=== PATIENT | female | born 1945 | race Caucasian/White ===

== ENCOUNTER 2019-10-20 19:56 | Inpatient (IN) ==
[2019-10-20 20:40] LABS: Basophils % 0.5 %; Eosinophils % 1.7 %; Immature Granulocytes % 0.7 % (0-4)
[2019-10-20 20:41] LABS: Eosinophils # 0.1 K/mcL (0.0-0.6); Hemoglobin 11.9 g/dL (11.5-15.4); Immature Platelets 3.2 % (1.1-6.1); Lymphocytes # 0.7 K/mcL (0.6-4.6); Lymphocytes % 17.1 %; Mean Corpuscular Hemoglobin 29.2 pg (28.0-33.3); Mean Corpuscular Volume 85.8 fL (83.0-100.0); Mean Platelet Volume 10.4 fL (9.4-12.4); Monocytes # 0.4 K/mcL (0.0-1.3); Monocytes % 9.6 %; Red Blood Count 4.08 M/mcL (3.82-4.97); Red Cell Distribution Width 14.8 % (11.5-14.5); Segmented Neutrophils % 70.4 %; White Blood Count 4.2 K/mcL (4.3-11.1)
[2019-10-20 20:46] LABS: Platelet Count 60 K/mcL (140-400)
[2019-10-20 21:02] LABS: Alanine Aminotransferase 26 Units/L (7-52); Albumin/Globulin Ratio 1.2 (1.1-2.2); Alkaline Phosphatase 135 Units/L (34-104); Aspartate Amino Transferase 35 Units/L (13-39); BUN/Creatinine Ratio 19 (6-26); Bilirubin,Total 2.3 mg/dL (0.3-1.0); Blood Urea Nitrogen 22 mg/dL (8-23); Carbon Dioxide 23 mEq/L (23-29); Chloride 106 mEq/L (98-107); Globulin 2.6 g/dL (2.4-3.5); Glucose 182 mg/dL (70-105); Osmolality,Calculated 300 (280-300); Sodium 141 mEq/L (136-145); Total Protein 5.6 g/dL (6.4-8.9); Troponin I < 0.03 ng/mL (< 0.04); eGFR For African Americans 56 (> 60); eGFR For Non-African Americans 46 (> 60)
[2019-10-20 22:14] LABS: Bacteria,Urine None Seen per hpf (None-Few); Hyaline Casts,Urine None Seen per lpf (None-Few); RBC,Urine 0-3 per hpf (0-3); Squamous Epithelial Cell,Urine Many per lpf (None-Few)
[2019-10-20 22:15] LABS: Bilirubin,Urine Negative (Negative); Blood,Urine Negative (Negative); Clarity,Urine Clear (Clear); Color,Urine Yellow (Yellow); Glucose,Urine (UA) Normal (Normal); Ketones,Urine Negative (Negative); Leukocyte Esterase,Urine Trace (Negative); Nitrite,Urine Negative (Negative); Protein,Urine Negative (Neg-Trace); Specific Gravity,Urine 1.015 (1.010-1.025); Urobilinogen,Urine Normal (Normal)
[2019-10-20 22:27] LABS: INR 1.4; Prothrombin Time 15.4 Seconds (9.4-12.1)
[2019-10-20] MEDS ORDERED: Lactulose Oral Soln 20 GM/30 ML UDC PO ONE (23:06)
[2019-10-21] MEDS ORDERED: Naloxone 0.4 MG/ML INJ IVP PRN (02:04)
[2019-10-21] MEDS ORDERED: Lactulose Oral Soln 20 GM/30 ML UDC PO SCH (02:15)
[2019-10-21] MEDS ORDERED: 0.9 % Sodium Chloride 1,000 ML IVC SCH (02:15)
[2019-10-21] MEDS ORDERED: cefTRIAXone 1,000 MG in 0.9 % Sodium Chloride Mini Bag 100 ML IVPB SCH (05:00)
[2019-10-21 06:00] LABS: Hemoglobin 10.7 g/dL (11.5-15.4); Red Cell Distribution Width 14.6 % (11.5-14.5)
[2019-10-21 06:02] LABS: Hematocrit 31.4 % (35.3-44.9); Immature Platelets 3.1 % (1.1-6.1); Mean Corpuscular HGB Conc 34.1 g/dL (31.6-35.5); Mean Corpuscular Hemoglobin 29.1 pg (28.0-33.3); Mean Corpuscular Volume 85.3 fL (83.0-100.0); Mean Platelet Volume 9.8 fL (9.4-12.4); Red Blood Count 3.68 M/mcL (3.82-4.97); White Blood Count 2.5 K/mcL (4.3-11.1)
[2019-10-21 06:23] LABS: Alanine Aminotransferase 23 Units/L (7-52); Albumin 2.7 g/dL (3.5-5.7); Albumin/Globulin Ratio 1.2 (1.1-2.2); Alkaline Phosphatase 124 Units/L (34-104); Aspartate Amino Transferase 30 Units/L (13-39); BUN/Creatinine Ratio 23 (6-26); Blood Urea Nitrogen 23 mg/dL (8-23); Carbon Dioxide 21 mEq/L (23-29); Chloride 108 mEq/L (98-107); Globulin 2.3 g/dL (2.4-3.5); Glucose 185 mg/dL (70-105); Osmolality,Calculated 300 (280-300); Sodium 141 mEq/L (136-145); eGFR For African Americans > 60 (> 60); eGFR For Non-African Americans 54 (> 60)
[2019-10-21] MEDS ORDERED: Furosemide 40 MG TABLET PO SCH (09:00)
[2019-10-21] MEDS: Spironolactone 25 MG TABLET PO SCH (09:21)
[2019-10-21] MEDS: Lactulose Oral Soln 20 GM/30 ML UDC PO PRN (09:21)
[2019-10-21] MEDS: carvediloL 6.25 MG TABLET PO SCH ×2 (09:21→17:06)
[2019-10-21] MEDS ORDERED: *HR* Dextrose 50 % in Water (Syg) 50 ML SYRINGE IVP PRN (09:55)
[2019-10-21] MEDS ORDERED: D5% in Water 1,000 ML IVC PRN (09:55)
[2019-10-21] MEDS ORDERED: Dextrose Gel 15 GM/37.5 ML TUBE PO PRN ×2 (09:55)
[2019-10-21] MEDS: Insulin LISPRO 300 UNITS/3 ML VIAL SQ SCH ×2 (13:46→17:06)
[2019-10-22 00:49] LABS: Basophils % 0.8 %; Hemoglobin 9.9 g/dL (11.5-15.4); Immature Granulocytes % 0.4 % (0-4); Red Cell Distribution Width 14.7 % (11.5-14.5)
[2019-10-22 00:50] LABS: Hematocrit 30.3 % (35.3-44.9); Immature Platelets 2.8 % (1.1-6.1); Mean Corpuscular HGB Conc 32.7 g/dL (31.6-35.5); Mean Corpuscular Hemoglobin 29.1 pg (28.0-33.3); Mean Corpuscular Volume 89.1 fL (83.0-100.0); Mean Platelet Volume 11.3 fL (9.4-12.4); Segmented Neutrophils % 61.8 %; White Blood Count 2.5 K/mcL (4.3-11.1)
[2019-10-22 00:51] LABS: Eosinophils # 0.1 K/mcL (0.0-0.6); Lymphocytes # 0.6 K/mcL (0.6-4.6); Lymphocytes % 24.4 %; Monocytes # 0.3 K/mcL (0.0-1.3); Monocytes % 10.6 %; Neutrophils # 1.6 K/mcL (1.6-8.9)
[2019-10-22 00:53] LABS: Platelet Count 42 K/mcL (140-400)
[2019-10-22 00:54] LABS: Platelet Estimate Marked Decrease (Normal)
[2019-10-22 01:11] LABS: Alanine Aminotransferase 22 Units/L (7-52); Albumin 2.5 g/dL (3.5-5.7); Alkaline Phosphatase 115 Units/L (34-104); Aspartate Amino Transferase 28 Units/L (13-39); BUN/Creatinine Ratio 22 (6-26); Bilirubin,Direct 0.4 mg/dL (0.0-0.2); Bilirubin,Indirect 0.9 mg/dL (0.0-1.0); Bilirubin,Total 1.3 mg/dL (0.3-1.0); Blood Urea Nitrogen 22 mg/dL (8-23); Calcium 7.9 mg/dL (8.6-10.3); Carbon Dioxide 22 mEq/L (23-29); Chloride 110 mEq/L (98-107); Globulin 2.4 g/dL (2.4-3.5); Glucose 197 mg/dL (70-105); Osmolality,Calculated 295 (280-300); Potassium 3.8 mEq/L (3.5-5.1); Sodium 138 mEq/L (136-145); Total Protein 4.9 g/dL (6.4-8.9); eGFR For African Americans > 60 (> 60); eGFR For Non-African Americans 56 (> 60)
[2019-10-22] MEDS ORDERED: Ringers Solution, Lactated 1,000 ML IVC SCH (08:45)
[2019-10-22] MEDS ORDERED: cefTRIAXone 1,000 MG in Water for inj. (sterile) 10 ML IVP SCH (09:00)
[2019-10-22] MEDS ORDERED: cefTRIAXone 1,000 MG in 0.9 % Sodium Chloride Mini Bag 100 ML IVPB SCH (09:00)
[2019-10-22] MEDS: Insulin LISPRO 300 UNITS/3 ML VIAL SQ SCH ×3 (09:04→17:32)
[2019-10-22] MEDS: carvediloL 6.25 MG TABLET PO SCH ×2 (09:05→17:32)
[2019-10-22] MEDS: Spironolactone 25 MG TABLET PO SCH (09:05)
[2019-10-22] MEDS: Lactulose Oral Soln 20 GM/30 ML UDC PO PRN (09:36)
[2019-10-22 11:31] LABS: Hematocrit 33.8 % (35.3-44.9); Hemoglobin 11.3 g/dL (11.5-15.4)
[2019-10-22 12:15] LABS: Vitamin B12 601 pg/mL (250-1100); Vitamin D 25 Hydroxy 64 ng/mL (30-80)
[2019-10-22] MEDS ORDERED: Insulin LISPRO 300 UNITS/3 ML VIAL SQ SCH (21:48)
[2019-10-23 05:15] LABS: Alanine Aminotransferase 24 Units/L (7-52); Albumin 2.5 g/dL (3.5-5.7); Alkaline Phosphatase 117 Units/L (34-104); Aspartate Amino Transferase 31 Units/L (13-39); BUN/Creatinine Ratio 25 (6-26); Bilirubin,Total 1.2 mg/dL (0.3-1.0); Blood Urea Nitrogen 22 mg/dL (8-23); Calcium 7.8 mg/dL (8.6-10.3); Carbon Dioxide 22 mEq/L (23-29); Chloride 113 mEq/L (98-107); Globulin 2.5 g/dL (2.4-3.5); Glucose 139 mg/dL (70-105); Osmolality,Calculated 294 (280-300); Sodium 139 mEq/L (136-145); eGFR For African Americans > 60 (> 60); eGFR For Non-African Americans > 60 (> 60)
[2019-10-23] MEDS: Insulin LISPRO 300 UNITS/3 ML VIAL SQ SCH ×2 (07:36→12:51)
[2019-10-23] MEDS: Spironolactone 25 MG TABLET PO SCH (07:41)
[2019-10-23] MEDS: carvediloL 6.25 MG TABLET PO SCH (07:41)
[2019-10-23 09:45] LABS: Mean Corpuscular Volume 87.2 fL (83.0-100.0); Red Cell Distribution Width 14.6 % (11.5-14.5)
[2019-10-23 09:46] LABS: Basophils % 0.9 %; Eosinophils % 1.7 %; Hematocrit 31.9 % (35.3-44.9); Hemoglobin 10.6 g/dL (11.5-15.4); Immature Granulocytes % 0.9 % (0-4); Immature Platelets 3.4 % (1.1-6.1); Lymphocytes # 0.5 K/mcL (0.6-4.6); Lymphocytes % 20.9 %; Mean Corpuscular HGB Conc 33.2 g/dL (31.6-35.5); Mean Platelet Volume 10.7 fL (9.4-12.4); Monocytes # 0.2 K/mcL (0.0-1.3); Monocytes % 10.4 %; Neutrophils # 1.5 K/mcL (1.6-8.9); Red Blood Count 3.66 M/mcL (3.82-4.97); Segmented Neutrophils % 65.2 %; White Blood Count 2.3 K/mcL (4.3-11.1)
[2019-10-23 09:48] LABS: Platelet Count 36 K/mcL (140-400)
[2019-10-23] MEDS: Lactulose Oral Soln 20 GM/30 ML UDC PO PRN (10:29)
[2019-10-23 16:52] VITALS: BP 124/71
== END 2019-10-23 17:24 | disposition home health service (06) | DRG 442 ==
LOC: EMEROOARM 19:56 → 3NENU 19:56 → SUATTDRO 10-21 00:02 → 3NENU 10-21 00:56
PROVIDERS: ADMIT Internal Medicine; ATTEND Student in an Organized Health Care Education/Training Program

== ENCOUNTER 2020-03-13 15:45 | Inpatient (IN) ==
[2020-03-13] MEDS ORDERED: Ondansetron 4 MG/2 ML VIAL IVP STA (16:10)
[2020-03-13] MEDS ORDERED: Isovue-370 500 ML BOTTLE IVP ONE (16:10)
[2020-03-13] MEDS ORDERED: *HR* FentaNYL (PF) 100 MCG/2 ML VIAL IVP ONE (16:23)
[2020-03-13] MEDS ORDERED: 0.9 % Sodium Chloride 500 ML IVC STA (16:23)
[2020-03-13 16:41] LABS: Basophils % 0.5 %; Hematocrit 34.9 % (35.3-44.9)
[2020-03-13 16:43] LABS: Hemoglobin 11.2 g/dL (11.5-15.4); Immature Granulocytes % 0.8 % (0-4); Immature Platelets 2.2 % (1.1-6.1); Lymphocytes # 0.5 K/mcL (0.6-4.6); Mean Corpuscular HGB Conc 32.1 g/dL (31.6-35.5); Mean Corpuscular Hemoglobin 28.9 pg (28.0-33.3); Mean Corpuscular Volume 89.9 fL (83.0-100.0); Mean Platelet Volume 9.9 fL (9.4-12.4); Monocytes # 0.3 K/mcL (0.0-1.3); Monocytes % 8.5 %; Neutrophils # 3.1 K/mcL (1.6-8.9); Platelet Count 52 K/mcL (140-400); Red Blood Count 3.88 M/mcL (3.82-4.97); Red Cell Distribution Width 16.6 % (11.5-14.5); Segmented Neutrophils % 77.2 %
[2020-03-13 16:44] LABS: INR 1.5
[2020-03-13 16:46] LABS: Activated Partial Thrombo Time 30.8 Seconds (26.0-36.0)
[2020-03-13 17:02] LABS: Alanine Aminotransferase 26 Units/L (7-52); Albumin 2.8 g/dL (3.5-5.7); Alkaline Phosphatase 148 Units/L (34-104); Aspartate Amino Transferase 39 Units/L (13-39); Bilirubin,Direct 1.2 mg/dL (0.0-0.2); Bilirubin,Indirect 2.5 mg/dL (0.0-1.0); Bilirubin,Total 3.7 mg/dL (0.3-1.0); Globulin 2.7 g/dL (2.4-3.5); Lipase 141 Units/L (11-82); Total Protein 5.5 g/dL (6.4-8.9); Troponin I < 0.03 ng/mL (< 0.04)
[2020-03-13 17:32] LABS: BUN/Creatinine Ratio 14 (6-26); Blood Urea Nitrogen 20 mg/dL (8-23); Calcium 7.9 mg/dL (8.6-10.3); Carbon Dioxide 21 mEq/L (23-29); Chloride 108 mEq/L (98-107); Glucose 229 mg/dL (70-105); Osmolality,Calculated 290 (280-300); Potassium 4.2 mEq/L (3.5-5.1); Sodium 135 mEq/L (136-145); eGFR For African Americans 42 (> 60); eGFR For Non-African Americans 35 (> 60)
[2020-03-13] MEDS ORDERED: Lidocaine/EPI 1:100k 1% 30 ML VIAL INFILT STA (17:42)
[2020-03-13 18:54] LABS: Source of Body Fluid ascites
[2020-03-13 20:18] LABS: Appearance of Body Fluid Clear (Clear); Volume of Body Fluid 20 mL
[2020-03-13] MEDS ORDERED: Naloxone 0.4 MG/ML INJ IVP PRN (20:52)
[2020-03-13] MEDS ORDERED: Ondansetron ODT 4 MG TAB.RAPDIS SL PRN (20:54)
[2020-03-13] MEDS ORDERED: carvediloL 6.25 MG TABLET PO SCH (21:00)
[2020-03-13] MEDS ORDERED: Furosemide 40 MG TABLET PO SCH (21:00)
[2020-03-13] MEDS ORDERED: Dextrose Gel 15 GM/37.5 ML TUBE PO PRN ×2 (21:45)
[2020-03-13] MEDS ORDERED: D5% in Water 1,000 ML IVC PRN (21:45)
[2020-03-13] MEDS ORDERED: *HR* Dextrose 50 % in Water (Syg) 50 ML SYRINGE IVP PRN (21:45)
[2020-03-13] MEDS ORDERED: 0.9 % Sodium Chloride 1,000 ML IVC SCH (21:45)
[2020-03-13] MEDS ORDERED: Insulin LISPRO 300 UNITS/3 ML VIAL SQ SCH ×2 (21:45)
[2020-03-13] MEDS ORDERED: Ringers Solution, Lactated 1,000 ML IVC SCH ×2 (22:30→23:15)
[2020-03-13] MEDS: FLUoxetine 20 MG CAPSULE PO SCH (23:29)
[2020-03-13] MEDS: Lactulose Oral Soln 20 GM/30 ML UDC PO SCH (23:29)
[2020-03-13] MEDS: carvediloL 6.25 MG TABLET PO SCH (23:37)
[2020-03-13] MEDS: Furosemide 40 MG TABLET PO SCH (23:38)
[2020-03-13] MEDS: Insulin LISPRO 300 UNITS/3 ML VIAL SQ SCH (23:38)
[2020-03-14 00:38] LABS: Calcium 7.4 mg/dL (8.6-10.3); Potassium 3.8 mEq/L (3.5-5.1)
[2020-03-14 05:22] LABS: Mean Platelet Volume 9.8 fL (9.4-12.4)
[2020-03-14 05:24] LABS: Hematocrit 30.1 % (35.3-44.9); Hemoglobin 9.7 g/dL (11.5-15.4); Immature Platelets 1.9 % (1.1-6.1); Mean Corpuscular HGB Conc 32.2 g/dL (31.6-35.5); Mean Corpuscular Hemoglobin 28.4 pg (28.0-33.3); Mean Corpuscular Volume 88.3 fL (83.0-100.0); Red Blood Count 3.41 M/mcL (3.82-4.97); Red Cell Distribution Width 16.4 % (11.5-14.5); White Blood Count 2.4 K/mcL (4.3-11.1)
[2020-03-14 05:29] LABS: INR 1.6; Prothrombin Time 17.7 Seconds (9.4-12.1)
[2020-03-14 05:43] LABS: Calcium 7.4 mg/dL (8.6-10.3); Potassium 3.7 mEq/L (3.5-5.1)
[2020-03-14] MEDS ORDERED: *HR* Heparin 5,000 UNIT/ML VIAL SQ SCH (06:00)
[2020-03-14] MEDS: Ferrous Sulfate Oral Soln 300 MG/5 ML UDC PO SCH (07:34)
[2020-03-14] MEDS: Furosemide 40 MG TABLET PO SCH (07:34)
[2020-03-14] MEDS: Lactulose Oral Soln 20 GM/30 ML UDC PO SCH ×3 (07:34→20:41)
[2020-03-14] MEDS: carvediloL 6.25 MG TABLET PO SCH (07:34)
[2020-03-14] MEDS: FLUoxetine 20 MG CAPSULE PO SCH ×2 (07:34→20:42)
[2020-03-14] MEDS: Insulin LISPRO 300 UNITS/3 ML VIAL SQ SCH ×4 (07:35→20:35)
[2020-03-14] MEDS ORDERED: Spironolactone 25 MG TABLET PO SCH (09:00)
[2020-03-14] MEDS ORDERED: Albumin 25% 25gram/100mL 25 GM/100 ML IV.SOLN IVPB SCH (11:30)
[2020-03-14] MEDS ORDERED: LACTULOSE PO PRN (16:43)
[2020-03-14 17:22] LABS: RBC,Peritoneal Fluid < 0.002 M/mcL
[2020-03-14 18:19] LABS: Basophils,Peritoneal Fluid 0 %; Eosinophils,Peritoneal Fluid 0 %
[2020-03-14 18:20] LABS: Appearance of Peritoneal Fl CLEAR (Clear)
[2020-03-14] MEDS: Albumin 25% 25gram/100mL 25 GM/100 ML IV.SOLN IVPB SCH ×2 (19:11→23:01)
[2020-03-15] MEDS: Albumin 25% 25gram/100mL 25 GM/100 ML IV.SOLN IVPB SCH ×3 (06:00→17:47)
[2020-03-15 07:31] LABS: Hemoglobin 8.8 g/dL (11.5-15.4); Immature Granulocytes % 0.4 % (0-4); Lymphocytes % 23.5 %; Mean Corpuscular Hemoglobin 29.1 pg (28.0-33.3); Red Blood Count 3.02 M/mcL (3.82-4.97)
[2020-03-15 07:33] LABS: Basophils % 0.8 %; Eosinophils % 1.2 %; Immature Platelets 1.2 % (1.1-6.1); Lymphocytes # 0.6 K/mcL (0.6-4.6); Mean Corpuscular HGB Conc 32.6 g/dL (31.6-35.5); Mean Corpuscular Volume 89.4 fL (83.0-100.0); Mean Platelet Volume 10.6 fL (9.4-12.4); Monocytes # 0.2 K/mcL (0.0-1.3); Monocytes % 8.6 %; Neutrophils # 1.6 K/mcL (1.6-8.9); Platelet Count 37 K/mcL (140-400); Red Cell Distribution Width 16.5 % (11.5-14.5); Segmented Neutrophils % 65.5 %; White Blood Count 2.4 K/mcL (4.3-11.1)
[2020-03-15] MEDS: Lactulose Oral Soln 20 GM/30 ML UDC PO SCH ×3 (07:46→20:50)
[2020-03-15] MEDS: Ferrous Sulfate Oral Soln 300 MG/5 ML UDC PO SCH (07:46)
[2020-03-15] MEDS: FLUoxetine 20 MG CAPSULE PO SCH ×2 (07:47→20:50)
[2020-03-15] MEDS: Insulin LISPRO 300 UNITS/3 ML VIAL SQ SCH ×4 (07:47→20:39)
[2020-03-15 07:49] LABS: Potassium 3.7 mEq/L (3.5-5.1)
[2020-03-15 09:25] LABS: Bilirubin,Urine Negative (Negative); Blood,Urine Negative (Negative); Color,Urine Dark Yellow (Yellow); Glucose,Urine (UA) Normal (Normal); Ketones,Urine Negative (Negative); Leukocyte Esterase,Urine Negative (Negative); Nitrite,Urine Negative (Negative); PH,Urine 5.5 pH Units (5.0-8.0); Protein,Urine Negative (Neg-Trace); Specific Gravity,Urine > 1.030 (1.010-1.025); Urobilinogen,Urine Normal (Normal)
[2020-03-15 09:31] LABS: Clarity,Urine Clear (Clear)
[2020-03-16] MEDS ORDERED: Acetaminophen 325 MG TABLET PO ONE (00:48)
[2020-03-16] MEDS: Albumin 25% 25gram/100mL 25 GM/100 ML IV.SOLN IVPB SCH ×2 (01:00→06:00)
[2020-03-16 01:51] LABS: Basophils % 0.6 %; Immature Granulocytes % 0.6 % (0-4); Red Cell Distribution Width 16.5 % (11.5-14.5)
[2020-03-16 01:52] LABS: Eosinophils % 0.6 %; Hematocrit 26.4 % (35.3-44.9); Hemoglobin 8.4 g/dL (11.5-15.4); Immature Platelets 2.4 % (1.1-6.1); Lymphocytes # 0.4 K/mcL (0.6-4.6); Lymphocytes % 20.3 %; Mean Corpuscular HGB Conc 31.8 g/dL (31.6-35.5); Mean Corpuscular Hemoglobin 28.4 pg (28.0-33.3); Mean Corpuscular Volume 89.2 fL (83.0-100.0); Monocytes # 0.2 K/mcL (0.0-1.3); Red Blood Count 2.96 M/mcL (3.82-4.97); Segmented Neutrophils % 66.9 %; White Blood Count 1.7 K/mcL (4.3-11.1)
[2020-03-16 01:59] LABS: Neutrophils # 1.1 K/mcL (1.6-8.9); Platelet Count 30 K/mcL (140-400)
[2020-03-16 02:11] LABS: Potassium 3.7 mEq/L (3.5-5.1)
[2020-03-16] MEDS: Ferrous Sulfate Oral Soln 300 MG/5 ML UDC PO SCH (07:50)
[2020-03-16] MEDS: Lactulose Oral Soln 20 GM/30 ML UDC PO SCH ×3 (07:50→20:57)
[2020-03-16] MEDS: FLUoxetine 20 MG CAPSULE PO SCH ×2 (07:50→20:57)
[2020-03-16] MEDS: Insulin LISPRO 300 UNITS/3 ML VIAL SQ SCH ×4 (07:50→18:05)
[2020-03-16 08:44] LABS: Albumin 3.3 g/dL (3.5-5.7); Albumin/Globulin Ratio 1.9 (1.1-2.2); Bilirubin,Direct 0.7 mg/dL (0.0-0.2); Bilirubin,Indirect 0.5 mg/dL (0.0-1.0); Bilirubin,Total 1.2 mg/dL (0.3-1.0); Globulin 1.7 g/dL (2.4-3.5)
[2020-03-16] MEDS ORDERED: Furosemide 20 MG/2 ML VIAL IVP ONE (16:53)
[2020-03-16] MEDS: Spironolactone 25 MG TABLET PO SCH (18:05)
[2020-03-17 05:25] LABS: Hematocrit 26.8 % (35.3-44.9); Hemoglobin 8.7 g/dL (11.5-15.4); Immature Platelets 3.1 % (1.1-6.1); Mean Corpuscular HGB Conc 32.5 g/dL (31.6-35.5); Mean Corpuscular Hemoglobin 29.1 pg (28.0-33.3); Mean Corpuscular Volume 89.6 fL (83.0-100.0); Mean Platelet Volume 9.8 fL (9.4-12.4); Red Blood Count 2.99 M/mcL (3.82-4.97); Red Cell Distribution Width 16.5 % (11.5-14.5); White Blood Count 1.9 K/mcL (4.3-11.1)
[2020-03-17 05:28] LABS: INR 1.8; Prothrombin Time 20.3 Seconds (9.4-12.1)
[2020-03-17 05:41] LABS: Albumin 3.1 g/dL (3.5-5.7); Albumin/Globulin Ratio 1.7 (1.1-2.2); Bilirubin,Direct 0.8 mg/dL (0.0-0.2); Bilirubin,Indirect 1.5 mg/dL (0.0-1.0); Bilirubin,Total 2.3 mg/dL (0.3-1.0); Globulin 1.8 g/dL (2.4-3.5); Magnesium 1.7 mg/dL (1.6-2.6); Total Protein 4.9 g/dL (6.4-8.9)
[2020-03-17 05:42] LABS: BUN/Creatinine Ratio 13 (6-26); Blood Urea Nitrogen 14 mg/dL (8-23); Carbon Dioxide 21 mEq/L (23-29); Chloride 114 mEq/L (98-107); Glucose 105 mg/dL (70-105); Osmolality,Calculated 289 (280-300); Potassium 3.8 mEq/L (3.5-5.1); Sodium 139 mEq/L (136-145); eGFR For African Americans > 60 (> 60); eGFR For Non-African Americans 52 (> 60)
[2020-03-17 07:04] VITALS: BP 105/58
[2020-03-17] MEDS: Insulin LISPRO 300 UNITS/3 ML VIAL SQ SCH ×2 (08:14→12:06)
[2020-03-17] MEDS: FLUoxetine 20 MG CAPSULE PO SCH (08:42)
[2020-03-17] MEDS: Ferrous Sulfate Oral Soln 300 MG/5 ML UDC PO SCH (08:42)
[2020-03-17] MEDS: Lactulose Oral Soln 20 GM/30 ML UDC PO SCH (08:43)
[2020-03-17] MEDS: Spironolactone 25 MG TABLET PO SCH (08:44)
[2020-03-17 15:07] LABS: Fluid Source for Albumin PERITONEAL FL
== END 2020-03-17 14:00 | disposition short-term general hospital (02) | DRG 433 ==
LOC: 3ANU 15:45 → EMEROOARM 15:45 → 3ANU 20:52 → SUATTDRO 03-16 16:03
PROVIDERS: ADMIT Internal Medicine; ATTEND Internal Medicine